=== PATIENT | female | born 1960 | race Caucasian/White ===

== ENCOUNTER 2018-11-06 17:12 | Emergency (ER) | payer OTHER ==
[~2018-11-06] VITALS: Ht 154.9 cm; Wt 60.3 kg
[~2018-11-06 17:12] MED LIST: SIMV20TA6 PO
--- NOTE | 2018-11-06 18:53 | NUR ---
Lenny santillan in EDM - 11/06/18 at 1856 by BALAJI PT WAS IN TRIAGE AND WHEN SHE WAS ASKED ABOUT HER LIVING SITUATION IS MANDATED PART OF HOMELESS PROTOCOL - PATIENT GOT VERY OFFENDED - STARTED YELLING AND STORMED OUT OF ER.
--- NOTE | 2018-11-06 18:57 | NUR ---
pt was evaluated by dr zimmer. pt was d/c'd to home. d/c instructions given to the pt and to her mother. gait is stable.
[2018-11-06 19:00] VITALS: BP 142/78
== END 2018-11-06 19:01 | disposition home or self-care (01) ==
LOC: ER 17:12
DX: S93.401A Sprain of unspecified ligament of right ankle, initial encounter (principal); Z90.49 Acquired absence of other specified parts of digestive tract; Z79.899 Other long term (current) drug therapy; W10.9XXA Fall (on) (from) unspecified stairs and steps, initial encounter; Y93.89 Activity, other specified; Y92.89 Other specified places as the place of occurrence of the external cause; Y99.8 Other external cause status
CPT/HCPCS: 73590; 73610; 73630; A4663

== ENCOUNTER 2022-07-07 15:57 | Emergency (ER) | payer OTHER ==
[~2022-07-07] VITALS: Ht 154.9 cm; Wt 59.0 kg
[~2022-07-07 15:57] MED LIST changes: +SIMV-46 PO; -SIMV20TA6 PO
[2022-07-07 16:41] LABS: *BILIRUBIN,URIN NEGATIVE (NEGATIVE); *CLARITY,URINE CLOUDY (CLEAR); *COLOR,URINE YELLOW (YELLOW); *KETONES,URINE TRACE (NEGATIVE); *UROBILINOGEN,URINE 0.2 E.U./dl (NORMAL); LEUKOCYTE ESTERASE ,URINE 3+ (NEGATIVE); NITRITE, URINE POSITIVE (NEGATIVE); UGLUCOSE NEGATIVE (NEGATIVE)
[2022-07-07 16:43] LABS: *BLOOD, URINE TRACE (NEGATIVE)
[2022-07-07] MEDS ORDERED: NITR100C6 PO (16:50)
[2022-07-07] MEDS ORDERED: FLUCONAZOLE 100 MG TABLET PO ONE (17:00)
[2022-07-07] MEDS ORDERED: FLUCONAZOLE 100 MG TABLET ONE (17:22)
[2022-07-07 17:25] VITALS: BP 112/70
--- NOTE | 2022-07-07 17:25 | NUR ---
Patient discharged to home in stable condition. Written and verbal after care instructions given. Patient verbalizes understanding of instructions. Stressed follow up or return to ER for worsening s/s.
[2022-07-07 19:46] LABS: BACTERIA,URINE MA /HPF (NONE SEEN); SQUAMOUS EPITHELIAL CELL,UR FEW /HPF (NONE SEEN); WBC,URINE 50-80 /HPF (0-3)
== END 2022-07-07 17:25 | disposition home or self-care (01) ==
LOC: ER 15:57
DX: N39.0 Urinary tract infection, site not specified (principal); B37.31 Acute candidiasis of vulva and vagina; Z90.49 Acquired absence of other specified parts of digestive tract; E78.5 Hyperlipidemia, unspecified
CPT/HCPCS: A4663